=== PATIENT | female | born 1965 | race Caucasian/White ===

== ENCOUNTER 2018-04-25 11:00 | Emergency (ER) | payer OTHER ==
[2018-04-25] MEDS: ACETAMINOPHEN 325 MG TAB PO (13:27)
[2018-04-25] MEDS: ONDANSETRON (ODT) 4 MG TAB ODT (13:27)
[2018-04-25] MEDS: CIPROFLOXACIN 500 MG TAB PO (13:27)
== END 2018-04-25 13:58 | disposition home or self-care (01) ==
LOC: FTE 11:00
DX: R19.7 Diarrhea, unspecified (principal); I10 Essential (primary) hypertension; E11.9 Type 2 diabetes mellitus without complications; R11.10 Vomiting, unspecified
CPT/HCPCS: 99283; Z7502

== ENCOUNTER 2018-05-03 18:16 | Emergency (ER) | payer OTHER | END 2018-05-03 20:32 | disposition home or self-care (01) | LOC: FTE 18:16 | DX: J06.9 Acute upper respiratory infection, unspecified (principal); I10 Essential (primary) hypertension; E11.9 Type 2 diabetes mellitus without complications | CPT/HCPCS: 99282; Z7502 ==